=== PATIENT | female | born 1960 | race Caucasian/White ===

== ENCOUNTER 2016-12-23 10:45 | Day surgery (SDC) | payer MEDICAID ==
[~2016-12-23 10:45] MED LIST: CEFAZOLIN 1 GM/D5W RTU 1 GM/50 ML RTUPB IV PRN; RINGERS SOLUTION,LACTATED 1,000 ML IV PRN
[2016-12-23] MEDS ORDERED: MIDAZOLAM 2 MG/2 ML INJ ONE (11:11)
[2016-12-23] MEDS ORDERED: ONDANSETRON HCL INJ/PF 4 MG/2 ML SDV ONE (11:11)
[2016-12-23] MEDS ORDERED: FENTANYL CITRATE INJ/PF 100 MCG/2 ML AMPUL ONE (11:11)
[2016-12-23] MEDS ORDERED: PROPOFOL INJ 200 MG/20 ML VIAL IV ONE (11:12)
[2016-12-23] MEDS: LIDOCAINE 2% INJ (20 MG/ML) 20 ML MDV ONE ×2 (11:54→12:08)
[2016-12-23] MEDS: BUPIVACAINE HCL 0.5 % INJ/PF 30 ML SDV ONE ×2 (11:54→12:08)
[2016-12-23] MEDS ORDERED: MORPHINE SULFATE 10 MG/ML INJ ONE (13:27)
--- NOTE | 2016-12-26 13:03 | [facility] OPERATIVE REPORT E ---
[facility] Operative Report NAME: ROCK BETANCOURT AGE: 56Y DATE OF SURGERY: 12/23/2016 ROOM: PREOPERATIVE DIAGNOSIS: Plantar fibromatoma left foot. POSTOPERATIVE DIAGNOSIS: Plantar fibromatoma left foot. PROCEDURE PREFORMED: Excision of multiple planter fibromatomas, left foot. SURGEON: [place]ANCIS D.P.M. INTRAOPERATIVE FINDINGS: Indicated 3 well defined fibromas located in sequence of 3 over the medial band of the plantar fascia. They were well defined, not too large in size but encompass the medial band of the plantar fascia. Intraoperative findings were confirmed clinically. PROCEDURE: With the patient lying in a dorsal recumbent position, left foot and leg was prepped and draped in the usual standard sterile orthopedic manner. After the local anesthesia was administered which was a posterior tibial block. The type of anesthesia utilized was a 50/50 mixture of 2% Xylocaine and 0.5% Marcaine. After the anesthetic effect was accomplished, the left leg was elevated for approximately 2 minutes of time and the left ankle pneumatic tourniquet was inflated up to 250 mmHg after the blood was exsanguinated from the left foot. At this point, the left leg was brought to the level of the table. Attention was directed to the plantar aspect of the left foot and 3 palpable lesions were marked on the plantar skin. At this point, a curvilinear incision was placed right over the 3 fibrous tumors. The initial incision was deepened. The superficial and deep subcutaneous tissues were dissected via blunt and sharp dissection. This dissection was carried until the medial band of the plantar fascia was visualized. At this point, also the tumors were visualized and they were in a row of 3 with the most distal one being proximal to the first metatarsophalangeal joint. Very carefully the tumors were from the plantar fascia and were excised in toto. The specimen was sent for pathological study at this point. After the removal of the 3 fibromatomas, the plantar fascia was evaluated for any further pathological tissue and none was found. At this point, the left ankle pneumatic tourniquet was deflated. Circulation to the left foot returned to normal immediately as the normal digital color and temperature became apparent. The surgical area was irrigated with copious amounts of sterile saline solution and the subcutaneous tissues were closed from deep to superficial with 3-0 Vicryl. The skin edges were repositioned and coapted with 4-0 nylon using continuous interlocked stitch. Betadine compression dressing was applied around the left foot which was followed with an SUSAN bandage and a surgical shoe. This patient tolerated procedure well, left the operating room with stable vital signs and in good condition. The patient was taken to the recovery room alert, conscious, and oriented. There are no permanent disabilities anticipated at this time. DICTATING PHYSICIAN: NEW FRANCIS D.P.M. [id number] PHY#: [id number] ID: [id number] JOB#: [id number] ACCT: [id number] cc:NEW FRANCIS D.P.M. > MTDD
== END 2016-12-23 14:22 | disposition home or self-care (01) ==
LOC: SC 10:45
PROVIDERS: ATTEND Podiatrist Foot & Ankle Surgery
PROC: 0JBR0ZX Excision of Left Foot Subcutaneous Tissue and Fascia, Open Approach, Diagnostic (ICD-10-PCS; principal; 2016-12-23 11:30)
DX: M72.2 Plantar fascial fibromatosis (principal); E66.9 Obesity, unspecified
CPT/HCPCS: 88304 ×2; 28043; J2250; J3490; J0690; J3010; J2270; J2405; J2704; 1470